=== PATIENT | male | born 1940 | race Caucasian/White ===

== ENCOUNTER → 2017-04-03 | Outpatient (CLI) | payer OTHER ==
[~2017-04-03] MED LIST: ABREVA2 GM TOP; ASPIR 8181 MG PO; FLOMAX0.4 MG PO; FOLIC ACID1 MG PO; LOPRESSOR50 PO; NEXIUM40 MG PO; NITROGLYCERIN0.4 MG SUBLING; PRINIVIL5 MG PO; SIMVASTATIN40 MG PO; SYNTHROID50 MCG PO
--- NOTE | ~2017-04-03 | EKG ---
[address] [address] ELECTROCARDIOGRAM REPORT Name: OLU LANCASTER Room #: REG CLI CamilaCamila#: [id number] Admission: 04/03/17 Attend Phys: Ervin Edwards MD Discharge: Date of : 44 Report #: [id number] THIS REPORT FOR: //name// [facility] Test Date: 2017-04-03 Test Time: 10:53:01 Pat Name: OLU LANCASTER Department: Room: Gender: Literacy Specialist: TREY : 1940 Requested By: Ervin Edwards Order Number: [id number] MD: Alberto Dixon Measurements Intervals [place] Rate: 100 P: 58 PA: 164 QRS: -70 QRSD: 88 T: 64 QT: 340 QTc: 439 Interpretive Statements Sinus tachycardia Probable left atrial enlargement Left ventricular hypertrophy Inferior infarct, old Anterior infarct, old Compared to ECG 12/30/2002 11:28:38 Left ventricular hypertrophy now present Left-axis deviation no longer present Myocardial infarct finding still present Electronically Signed On 04-03-2017 21:34:19 [employer] by Alberto Dixon [email or web address] <ELECTRONICALLY SIGNED> By: Alberto Dixon MD 04/03/17 [id number] Alberto Dixon MD /EPI
== END ==
LOC: LITH 10:13
DX: N20.1 Calculus of ureter (principal); I11.0 Hypertensive heart disease with heart failure; I25.10 Atherosclerotic heart disease of native coronary artery without angina pectoris; I25.2 Old myocardial infarction; G43.909 Migraine, unspecified, not intractable, without status migrainosus; M10.9 Gout, unspecified; K21.9 Gastro-esophageal reflux disease without esophagitis; Z85.01 Personal history of malignant neoplasm of esophagus; Z95.5 Presence of coronary angioplasty implant and graft; Z98.890 Other specified postprocedural states; Z79.899 Other long term (current) drug therapy